=== PATIENT | female | born 1975 | race Hispanic/Latino ===

== ENCOUNTER 2021-08-13 05:54 | Day surgery (SDC) | payer MEDICAID ==
[2021-08-07 10:19] LABS: Alanine Aminotransferase 20 units/L (7-56); Albumin 4.5 g/dL (3.9-5); Blood Urea Nitrogen 17 mg/dL (7-17); Hemolysis Index 54
[2021-08-07 10:26] LABS: BUN/Creatinine Ratio 24
[2021-08-07 10:34] LABS: Hematocrit 38.4 % (30.3-42.9); Hemoglobin 13.1 gm/dl (10.1-14.3); Mean Corpuscular HGB Conc 34 % (30-34); Mean Corpuscular Volume 93 fl (79-97); Platelet Count 164 K/mm3 (140-440); Red Blood Count 4.14 M/mm3 (3.65-5.03); Red Cell Distribution Width 14.3 % (13.2-15.2)
--- NOTE | 2021-08-07 11:23 | Anesthesia Consultation ---
Anesthesia Consult and Med Hx Date of service: 08/13/21 - Airway Anesthetic Teeth Evaluation: Chipped (Broken & missing) ROM Head & Neck: Adequate Mental/Hyoid Distance: Adequate - Pre-Operative Health Status ASA Pre-Surgery Classification: ASA3 Proposed Anesthetic Plan: General - Pulmonary Hx Smoking: Yes (STOPPED X 1 MONTH (1 PPD X 1989)) Hx Asthma: No Hx Respiratory Symptoms: Yes (COOK one flight of stairs; can walk w/o dyspnea) COPD: Yes (PER H&P ONLY- NO MEDS) Hx Pneumonia: Yes (SEVERAL- NOW ALL RESOLVED) Hx Sleep Apnea: No (HECTOR PRE SCREEN NEGATIVE) - Cardiovascular System Hx Hypertension: No (Cardiomyopathy) Hx Coronary Artery Disease: Yes Hx Heart Attack/AMI: Yes (X 2 (2006) DURING HEART SURGERY) Hx Angina: No Hx Pacemaker: Yes (INSERT WITH REVISIONS X 2) Hx Heart Murmur: Yes - Central Nervous System Hx Back Pain: Yes (NECK AND BACK PAIN) Hx Psychiatric Problems: Yes (Anxiety/Depression) - Gastrointestinal Hx Ulcer: Yes - Endocrine Hx Renal Disease: Yes (resolved) Hx End Stage Renal Disease: No Hx Cirrhosis: Yes (PER H&P- PT DENIES) Hx Liver Disease: Yes (STAGE B CIRROSIS) Hx Thyroid Disease: Yes Hx Hypothyroidism: Yes (DAILY MEDS) - Hematic Hx Anemia: Yes (NOT RECENT) - Other Systems Hx Alcohol Use: Yes Hx Substance Use: Yes (HX XANAX AND DILAUDID ABUSE and heroin) Hx Cancer: No Hx Obesity: No - Additional Comments Anesthesia Medical History Comments: +Cardiac clearance [id number] Moderate risk. On warfarin and will do lovenox bridge. ECHO [id number] Reviewed; EF 50-55%. Patient didn't have her pacemaker card at time of visit; states it was checked in the office and at home recently and ok. LHC 11/2015 showed normal coronaries, EF 55%. Hx of Complete heart block s/p cardiac pacemaker. Dual chamber medtronic. Normal function on interrogation 11/2015. 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 # 31 [place]va pericardial paramount valve. Echo 11/2015 showed mean TV gradient of 8-10 mm Hg and a TVA of 1.05 cm2, restricted leaflet motion. Rt and left heart cath 11/2015 reports normal coronaries with a TVG 5.6 mm Hg. 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 Surgery at that time was complicated by complete heart block, prompting the insertion of a permanent pacemaker.
[2021-08-13] MEDS ORDERED: ACETAMINOPHEN 500 MG TAB PO NR (06:00)
[2021-08-13] MEDS ORDERED: MIDAZOLAM 2 MG/2 ML INJ IV NR (06:00)
[2021-08-13] MEDS ORDERED: GABAPENTIN 300 MG CAP PO NR (06:00)
[2021-08-13] MEDS ORDERED: CELECOXIB 200 MG CAP PO NR (06:00)
[2021-08-13] MEDS ORDERED: LACTATED RINGERS 1,000 ML IV SCH (06:00)
[2021-08-13] MEDS ORDERED: MAGNESIUM OXIDE 400 MG TAB PO NR (06:00)
[2021-08-13] MEDS ORDERED: BACTERIOSTATIC SODIUM CHLORIDE 0.9% 30 ML VIAL INFILTRATI ONE (06:29)
[2021-08-13] MEDS ORDERED: ceFAZolin/STERILE WATER 2 GM/20 ML SYRINGE IV NR (07:00)
[2021-08-13] MEDS ORDERED: ROCURONIUM 50 MG/5 ML INJ IV ONE ×2 (07:15→09:18)
[2021-08-13] MEDS ORDERED: propofoL 200 MG/20 ML VIAL IV ONE (07:16)
[2021-08-13] MEDS ORDERED: fentaNYL 100 MCG/2 ML INJ ONE (07:16)
[2021-08-13] MEDS ORDERED: LIDOCAINE MPF (2%) 20 MG/1 ML VIAL 5 ML ONE (07:16)
[2021-08-13] MEDS ORDERED: BUPIVACAINE/PF (0.5%) 5 MG/1 ML 30 ML VIAL INFILTRATI ONE ×2 (07:20→08:34)
[2021-08-13] MEDS ORDERED: LIDOCAINE (1%) 10 MG/1 ML VIAL 20 ML MDV ONE (07:20)
[2021-08-13] MEDS ORDERED: ONDANSETRON 4 MG/2 ML INJ IV PRN (07:30)
[2021-08-13] MEDS ORDERED: oxyCODONE /ACETAMINOPHEN 5-325MG TAB PO PRN (07:30)
[2021-08-13] MEDS ORDERED: PHENYLEPHRINE/NS 1,000 MCG/10 ML SYRINGE (OR USE) IV ONE (08:06)
[2021-08-13] MEDS ORDERED: KETAMINE/STERILE WATER 50 MG/ML SYRINGE ONE (08:31)
[2021-08-13] MEDS ORDERED: LIDOCAINE (1%) 10 MG/1 ML VIAL 20 ML MDV INFILTRATI ONE (08:35)
[2021-08-13] MEDS ORDERED: WATER FOR IRRIG STERILE 1,500 ML BOTTLE IR ONE (08:35)
[2021-08-13] MEDS ORDERED: LACTATED RINGERS 1,000 ML ONE (09:17)
[2021-08-13] MEDS ORDERED: ONDANSETRON 4 MG/2 ML INJ ONE (09:19)
[2021-08-13] MEDS ORDERED: dexAMETHasone 20 MG/5 ML VIAL ONE (09:19)
--- NOTE | 2021-08-13 10:34 | Short Stay Summary ---
Short Stay Documentation Date of service: 08/13/21 - History Principal diagnosis: recurrent ventral hernia H&P: obtained from office - Allergies and Medications Current Medications: Allergies No Known Allergies Allergy (Verified 04/01/16 19:21) Home Medications Medication Instructions Recorded Confirmed Last Taken Type Aspirin BABY CHEW TAB 81 mg PO DAILY 04/02/16 08/13/21 08/09/21 09:00 History Ascorbic Acid [Vitamin C] 1,000 mg PO DAILY 07/30/21 08/13/21 08/11/21 09:00 History Bumetanide [Bumex 1 mg tab] 1 mg PO BID 07/30/21 08/13/21 08/12/21 14:30 History Cholecalciferol (Vitamin D3) 2,000 unit PO QDAY 07/30/21 08/13/21 08/12/21 14:30 History [Vitamin D3 2,000 UNIT CAP] Docusate Sodium [Colace] 100 mg PO BID 07/30/21 08/13/21 08/12/21 14:30 History Enoxaparin Sodium [Lovenox] 120 mg SQ BID 07/30/21 08/13/21 08/12/21 17:30 History Levothyroxine [Synthroid] 25 mcg PO QAM 07/30/21 08/13/21 08/12/21 14:30 History [place]-3S/Dha/Epa/Fish Oil [Fish 1 each PO DAILY 07/30/21 08/13/21 08/12/21 14:30 History Oil 1,200 mg Softgel] Potassium Chloride [K-Dur] 20 meq PO QDAY 07/30/21 08/13/21 08/12/21 14:30 History Warfarin [Coumadin] 5 mg PO QDAY 07/30/21 08/13/21 08/08/21 09:00 History metOLazone [Zaroxolyn] 5 mg PO QWEEK 07/30/21 08/13/21 08/08/21 09:00 History Active Medications Acetaminophen (Acetaminophen 500 Mg Tab) 1,000 mg PO ONCE NR Stop: 08/13/21 20:00 Last Admin: 08/13/21 06:30 Dose: 1,000 mg Documented by: Cefazolin Sodium (Cefazolin/Sterile Water 2 Gm/20 Ml Syringe) 2 gm IV PREOP NR Stop: 08/13/21 20:00 Celecoxib (Celecoxib 200 Mg Cap) 400 mg PO PREOP NR Stop: 08/13/21 20:00 Last Admin: 08/13/21 06:30 Dose: 400 mg Documented by: Gabapentin (Gabapentin 300 Mg Cap) 600 mg PO PREOP NR Stop: 08/13/21 20:00 Last Admin: 08/13/21 06:30 Dose: 600 mg Documented by: Hydromorphone HCl (Hydromorphone 1 Mg/1 Ml Inj) 0.5 mg IV Q10MIN PRN PRN Reason: Pain , Severe (7-10) Stop: 08/13/21 20:00 Lactated Ringer's (Lactated Ringers) 1,000 mls @ 125 mls/hr IV DIRECT DUY Last Admin: 08/13/21 06:55 Dose: 125 mls/hr Documented by: Magnesium Oxide (Magnesium Oxide 400 Mg Tab) 400 mg PO ONCE NR Stop: 08/13/21 20:00 Last Admin: 08/13/21 06:30 Dose: 400 mg Documented by: Midazolam HCl (Midazolam 2 Mg/2 Ml Inj) 2 mg IV PREOP NR Stop: 08/13/21 23:59 Last Admin: 08/13/21 07:45 Dose: 2 mg Documented by: Ondansetron HCl (Ondansetron 4 Mg/2 Ml Inj) 4 mg IV ONCE PRN PRN Reason: Nausea And Vomiting Stop: 08/13/21 12:00 Oxycodone/Acetaminophen (Oxycodone /Acetaminophen 5-325mg Tab) 1 tab PO ONCE PRN PRN Reason: Pain, Moderate (4-6) Stop: 08/13/21 12:00 - Brief post op/procedure progress note Date of procedure: 08/13/21 Pre-op diagnosis: recurrent ventral hernia Post-op diagnosis: same Procedure: robotic assisted laparoscopic lysis of adhesions, repair of recurrent ventral hernia with mesh Anesthesia: GETA, local Findings: 1.5 cm hernia at the left lateral edge of the previous mesh approximately 5cm superior to umbilicus Repaired with 11.4 cm bard ventralite composite mesh Surgeon: NICHELLE KAY (Clerical Stock Inspector: Babs Shepherd RAMP SERVICE MAN) Estimated blood loss: minimal Pathology: none Condition: stable - Hospital course Hospital course: Pt observed in PACU and discharged to home in stable condition when criteria met - Disposition Condition at discharge: Good Disposition: 01 HOME / SELF CARE / HOMELESS Short Stay Discharge Plan Activity: other (no heavy lifting x 6 weeks) Diet: regular Wound: open to air, per your surgeon's advice Additional Instructions: SEE PRINTED DISCHARGE INSTRUCTIONS Follow up with: PRIMARY CARE, [Primary Care Provider] - 7 Days NICHELLE KAY DO [Staff Physician] - 14 Days Prescriptions: Gabapentin 300 mg PO BID #6 capsule oxyCODONE /ACETAMINOPHEN [Percocet 5/325 mg] 1 tab PO Q6H PRN #30 tablet PRN Reason: Pain , Severe (7-10)
[2021-08-13] MEDS: HYDROmorphone 1 MG/1 ML INJ IV PRN ×2 (11:10→11:20)
[2021-08-13 11:49] VITALS: BP 100/61
[2021-08-13] MEDS ORDERED: HYPROMELLOSE 0.5% OPHTH SOLN 15 ML OU PRN (12:05)
--- NOTE | 2021-08-13 14:20 | Anesthesia Day of Surgery ---
Anesthesia Day of Surgery - Day of Surgery Patient Examined: Yes Patient H&P Reviewed: Yes Patient is NPO: Yes
--- NOTE | 2021-08-13 14:22 | Post Anesthesia Evaluation ---
- Post Anesthesia Evaluation Patient Participated: Yes Airway Patent: Yes Stable Respiratory Function: Yes Nausea/Vomiting: No Temp > 96.8F: Yes Pain Manageable: Yes Adequeate Hydration: Yes Anesthesia Complications: Yes (see below) Other Comments: Patient complained of foreign body sensation in right eye. Normal vision. Gross examination of eye is normal. Explained to patien that symptoms are consistent with corneal abraision and should resolve over next several days. Artificial tears provided. All questions/concerns addressed.
--- NOTE | 2021-08-13 14:53 | Operative Report ---
Operative Report Operative Report: Date of procedure: 08/13/21 Pre-op diagnosis: recurrent ventral hernia Post-op diagnosis: same Procedure: robotic assisted laparoscopic lysis of adhesions, repair of recurrent ventral hernia with mesh Anesthesia: GETA, local Findings: 1.5 cm hernia at the left lateral edge of the previous mesh approximately 5cm superior to umbilicus Repaired with 11.4 cm bard ventralite composite mesh Surgeon: NICHELLE KAY (Auto Body Repair Technician: ALMA Story) Estimated blood loss: minimal Pathology: none Condition: stable Hospital course: Pt observed in PACU and discharged to home in stable condition when criteria met Condition at discharge: Good Disposition: 01 HOME / SELF CARE / HOMELESS Indication: Patient is a 45-year-old female who presented to the surgery clinic for evaluation of an abdominal hernia. The patient had a history of laparoscopic repair of a ventral hernia containing omentum in 2013. This was performed with mesh. The patient states that she had noticed a bulge in the left upper part of her abdomen which was concerning for recurrence. She was sent for CT scan which confirmed recurrence of a supraumbilical ventral hernia to the left of the midline containing fat. This was bothersome to the patient and it was recommended that the hernia be repaired. Patient obtain clearance from her plating operator for surgery and held Coumadin as recommended. All risks, benefits, alternatives to surgery were discussed with the patient and questions answered. Consent was obtained for robotic assisted recurrent ventral hernia repair with mesh, possible open. Procedure in detail: The patient was identified in the preoperative area and taken back to the operating room and placed on the operating room table in supine position. After anesthesia was induced, both arms were tucked with all bony prominences padded appropriately. Mauricio catheter was placed by the circulating nurse using sterile technique. The abdomen was then prepped and draped in usual sterile fashion and a timeout was performed. A bertram incision was made in the left upper quadrant at Lynn's point through which a Veress needle was inserted. The Veress needle position was confirmed using the saline drop test and the abdomen insufflated to 15 mmHg without incident. A 5 mm incision was made in the right upper quadrant through which a 5 mm Optiview trocar was placed under direct visualization. The abdomen was inspected and there was no underlying injury to any of the abdominal structures. The Veress needle was identified and removed. There were significant adhesions from the omentum to the anterior abdominal wall in the mid and upper abdomen obscuring the old mesh and site of the hernia. A right lower quadrant 8 mm robotic trocar was placed under direct visualization. Lysis of adhesions was then undertaken in order to create more room in the abdomen to facilitate robotic approach. The adhesions were ligated using LigaSure device. Once enough adhesions were taken down a right lateral 12 mm balloon trocar was placed under direct visualization. The 5 mm right upper quadrant trocar was removed and replaced with an 8 mm robotic trocar under direct visualization. A Ray-Rachelle was placed into the abdomen under direct visualization. The patient was tilted to the left and the robot docked. A fenestrated bipolar was placed in arm #2 and a monopolar scissor in arm #1. The surgeon was then transferred to the console. At this point I continued lysis of adhesions of the omental adhesions to the anterior abdominal wall. This was performed very meticulously with hemostasis achieved along the way. Identified old mesh that appeared to be well incorporated and laying flat against the abdominal wall. Just at the left lateral edge of the previous mesh approximately 5 cm superior to the umbilicus was a fat-containing ventral hernia. The fat was gently reduced along with the hernia sac. A small slit was made in the mesh in order to fully expose the fascial edges. The hernia measured 1.5 cm. At this point mesh and suture material was placed into the abdomen by the assistant tennis coach. I chose an 11.4 cm circular Bard ventral light composite mesh to repair the hernia. First the hernia defect was closed using 0-V loc running stitch. I then placed the mesh with the coated side facing the bowel against the abdominal wall and centered over the hernia defect. This was sutured to the abdominal wall circumferentially using 2 0- V loc suture x2. The mesh was seen to lay flat against the abdominal wall with excellent coverage of the hernia. The surgical field was checked for hemostasis which is very carefully ensured. The robot was then undocked and the surgeon scrubbed back in. The remainder of the case was performed laparoscopically. All sharp, suture, and sponge material was removed under direct visualization. The 12 mm port was removed and the fascia closed with an interrupted 0-vicryl stitches using the Valentín Esteves device. The right lower quadrant port fascia was also closed with an interrupted 0 Vicryl stitch using the Valentín Esteves device. The right upper quadrant port was removed and the abdomen desufflated. The skin incisions were closed with 4-0 Monocryl subcuticular stitches and skin glue. At the end of the case, all sponge, instrument, sharp counts were correct 2. An abdominal binder was applied to the patient. Mauricio catheter was removed. The patient was awoken from anesthesia, extubated and taken to PACU in stable condition.
== END 2021-08-13 12:30 | disposition home or self-care (01) ==
LOC: OR 05:54
PROVIDERS: ATTEND Surgery
DX: K43.2 Incisional hernia without obstruction or gangrene (principal); I25.10 Atherosclerotic heart disease of native coronary artery without angina pectoris; E03.9 Hypothyroidism, unspecified; F41.9 Anxiety disorder, unspecified; F32.9 Major depressive disorder, single episode, unspecified; I11.0 Hypertensive heart disease with heart failure; I50.9 Heart failure, unspecified; J44.9 Chronic obstructive pulmonary disease, unspecified; Z87.891 Personal history of nicotine dependence; Z79.01 Long term (current) use of anticoagulants; Z79.899 Other long term (current) drug therapy; Z98.890 Other specified postprocedural states; Z20.822 Contact with and (suspected) exposure to COVID-19
CPT/HCPCS: 36415; 49652; 80053; 85027; C1781; J0690; J1100; J1170; J2250; J2370; J2405; J2704; J3010; J3490; J7120; S2900; U0003